=== PATIENT | male | born 1970 | race African-American/Black ===

== ENCOUNTER 2023-05-09 23:28 | Observation (INO) ==
[2023-05-09 23:59] LABS: Basophils # (auto) 0.07 K/uL (0.00-0.20); Eosinophils # (auto) 0.21 K/uL (0.00-0.50); Hematocrit (blood only) 40.5 % (42.0-52.0); Hemoglobin 13.7 g/dl (14.0-18.0); Immature Granulocytes # (auto) 0.01 K/uL (0.01-0.20); Immature Granulocytes % (auto) 0.1 %; Lymphocytes # (auto) 2.73 K/uL (1.20-3.40); Lymphocytes % (auto) 38.6 %; Mean Corpuscular Hemoglobin 25.7 pg (25.0-34.0); Mean Corpuscular Hgb Conc 33.8 g/dL (32.0-36.0); Mean Platelet Volume 10.1 fL (9.4-12.4); Monocytes # (auto) 0.77 K/uL (0.11-0.59); Monocytes % (auto) 10.9 %; Neutrophils # (auto) 3.29 K/uL (1.40-6.50); Neutrophils % (auto) 46.4 %; Platelet Count 401 K/uL (130-400); RDW Coefficient of Variation 14.6 % (11.5-14.5); Red Blood Count 5.33 M/uL (4.70-6.10); White Blood Count 7.08 K/ul (4.8-10.8)
[2023-05-10 00:13] LABS: Alanine Aminotransferase 20 U/L (7-52); Albumin Globulin Ratio 1.3 (0.9-2); Albumin Level 4.3 gm/dl (3.4-5.0); Alkaline Phosphatase 65 U/L (34-104); Anion Gap 8 (3-11); Aspartate Aminotransferase 17 U/L (13-39); BUN Creatinine Ratio 13.5 (10-20); Bilirubin,Total 0.4 mg/dl (0.2-1.0); Blood Urea Nitrogen 12 mg/dl (6-23); Calcium 9.4 mg/dl (8.6-10.3); Carbon Dioxide 29 mmol/L (21-32); Chloride 101 mmol/L (98-107); Est GFR (African American) 111.6 ml/min; Est GFR (Non-African American) 96.3 ml/min; Globulin 3.3 gm/dl (2.5-4.0); Glucose 167 mg/dl (70-99(Fasting)); Potassium 3.1 mmol/L (3.5-5.1); Sodium 138 mmol/L (136-145); Total Protein 7.6 gm/dl (6.0-8.3)
[2023-05-10 00:21] LABS: Troponin I High Sensitivity 32.3 pg/ml (0-20)
[2023-05-10 00:26] LABS: INR 0.9 (0.9-1.1); Partial Thromboplastin Time 27 Seconds (21-31); Prothrombin Time 10.4 Seconds (9.0-12.0)
[2023-05-10] MEDS: NITROGLYCERIN 2% OINTMENT 30GM TUBE EXT ONE (00:44)
[2023-05-10] MEDS: ASPIRIN 81 MG CHEW PO STA (00:45)
--- NOTE | 2023-05-10 00:49 | Emergency Department Note ---
History of Present Illness General Chief complaint: Chest Pain Stated complaint: CHEST PAINS Time Seen by Provider: 05/10/23 00:30 History of Present Illness Maximum Pain Intensity: 5 This is a 53-year-old male presenting to the emergency department for evaluation of left-sided chest pain. Patient symptoms began around 10 PM this evening, roughly 90 minutes prior to arrival. Patient is diabetic and has history of hypertension and dyslipidemia. He has never had any previous cardiac events, but is concerned as he has spreading chest pain across the left side. The pain is more sharp than anything and is not radiating into his neck or down his arm. No nausea or vomiting. No abdominal symptoms. No recent flulike symptoms. He is a former cigarette smoker up until 2 years ago. He rates his discomfort a 5/10. Home Medications Medication Instructions Recorded Confirmed Type OneTouch Verio Flex meter #1 ea 09/26/22 05/10/23 Rx (blood-glucose meter) blood sugar diagnostic (Increo SolutionsTouch #100 ea 09/26/22 05/10/23 Rx Verio test strips) lancets 33 gauge (OneTouch Delica #200 ea 10/09/22 05/10/23 Rx Plus Lancet) amlodipine 10 mg tablet (Norvasc) 10 mg PO DAILY #90 tabs 01/20/23 05/10/23 Rx aspirin 81 mg tablet,delayed 81 mg PO DAILY #90 tabs 01/20/23 05/10/23 Rx release (Adult Low Dose Aspirin) atorvastatin 20 mg tablet 20 mg PO DAILY #90 tabs 01/20/23 05/10/23 Rx cholecalciferol (vitamin D3) 50 50 mcg PO DAILY #90 caps 01/20/23 05/10/23 Rx mcg (2,000 unit) capsule hydrochlorothiazide 25 mg tablet 25 mg PO DAILY #90 tabs 01/20/23 05/10/23 Rx valsartan 320 mg tablet 320 mg PO DAILY #90 tabs 01/20/23 05/10/23 Rx metformin 1,000 mg tablet 1,000 mg PO BID #180 tabs 01/21/23 05/10/23 Rx Allergies Allergy/AdvReac Type Severity Reaction Status Date / Time shellfish derived Allergy Unknown Verified 05/06/23 14:56 lisinopril AdvReac Mild swollen Verified 05/06/23 14:56 Lips seasonal Allergy Unknown Uncoded 05/06/23 14:56 Past Med/Surg History Medical History Moderate obstructive sleep apnea Diabetes mellitus, type 2 Dyslipidemia Hypertension Thyroid nodule Multiple lacunar infarcts Noted on MRI May 2021 Former cigarette smoker Quit 2021 Surgical History No pertinent past surgical history Family History Father , alcoholism related complications Alcohol abuse by father Mother Asthma Social History Smoking Status: Former smoker Tobacco Type: Cigarettes Second Hand Exposure: No; Do You Dip or Chew Tobacco: No; Hx Alcohol Use: No Hx Substance Use: No Preferred Language: Kazakh Communication Ability: Effective Collection Card Clerk Required: No Beliefs That Will Affect Care: Cultural Cultural Beliefs: No pork or shellfish, vegetarian. Current Living Situation: Spouse Feels Safe at Home: Yes Assistive Devices: None Review of Systems A total of 10 systems reviewed and were otherwise negative Physical Exam Vital Signs Vital Signs - 24 hr 05/09/23 23:30 05/10/23 00:09 Temperature 36.8 C Temperature Source Temporal Artery Scan Pulse Rate 71 62 Respiratory Rate 16 Respiratory Effort / Characteristics Non-Labored Spontaneous Respiratory Depth Normal Blood Pressure 151/86 H Blood Pressure Mean 107 Pulse Oximetry 99 Oxygen Delivery Method Room Air Sepsis Recent Fever Within 48 Hours No Sepsis New/Unexplained Change in Mental Status No Sepsis Action Taken by Nursing No Action Required VITALS: Vitals are noted on the nurse's note and reviewed by myself. Vital signs stable. GENERAL: Well-developed, well-nourished, black male, who is in no acute distress and resting comfortably. Patient is cooperative with the examination. HEAD: Normocephalic atraumatic. EARS: External ear normal. External auditory canals clear, tympanic membranes pearly ulloa without erythema or effusion bilaterally. EYES: Pupils equal round and reactive to light and accommodation. Conjunctivae without injection, sclerae without icterus. Extraocular movements intact. NOSE: Patent, turbinates without inflammation or discharge. MOUTH: Mucous membranes moist. Tonsils are not enlarged. Pharynx without erythema, blood, or exudate. Uvula midline. Airway patent. NECK: Supple without nuchal rigidity. No lymphadenopathy. No thyromegaly. Cervical spine is nontender. HEART: Regular rate and rhythm without murmurs gallops or rubs. LUNGS: Clear to auscultation bilaterally without wheezes, rales or rhonchi. No retractions or accessory muscle use. ABDOMEN: Positive normal bowel sounds x 4. Soft, nontender, without masses or organomegaly. No guarding or rebound tenderness. MUSCULOSKELETAL: No muscle atrophy, erythema, or edema noted. Full range of motion in all extremities. Course Administered Medications Discontinued Medications Amlodipine Besylate (Amlodipine Besylate 5 Mg Tab) 10 mg PO DAILY [facility] Stop: 06/09/23 08:59 Last Admin: 05/10/23 08:07 Dose: 10 mg Documented By: CHRIS Aspirin (Aspirin 81 Mg Chew) 324 mg PO NOW STA Stop: 05/10/23 00:31 Last Admin: 05/10/23 00:45 Dose: 324 mg Documented By: SYDNIE Aspirin (Aspirin 81 Mg Ectab) 81 mg PO DAILY [facility] Stop: 06/09/23 08:59 Last Admin: 05/10/23 08:07 Dose: 81 mg Documented By: CHRIS Atorvastatin Calcium (Atorvastatin 20 Mg Tab) 20 mg PO DAILY ISABELLA Stop: 06/09/23 08:59 Last Admin: 05/10/23 08:08 Dose: 20 mg Documented By: CHRIS Hydrochlorothiazide (Hydrochlorothiazide 25 Mg Tab) 25 mg PO DAILY ISABELLA Stop: 06/09/23 08:59 Last Admin: 05/10/23 08:07 Dose: 25 mg Documented By: CHRIS Insulin Aspart (Insulin Aspart Per Unit Charge) 0 units SC Q6 ISABELLA Stop: 06/09/23 05:59 Last Admin: 05/10/23 12:31 Dose: Not Given Documented By: CHRIS Co-signed By: PILAR Admin: 05/10/23 06:28 Dose: Not Given Documented By: IDVikas Nitroglycerin (Nitroglycerin 2% Ointment 30gm Tube) 1 inch EXT NOW ONE Stop: 05/10/23 00:31 Last Admin: 05/10/23 00:44 Dose: 1 inch Documented By: SYDNIE Polyethylene Glycol (Polyethylene (Miralax) 17 Gm Pack) 17 gm PO DAILY [facility] Stop: 06/09/23 08:59 Last Admin: 05/10/23 08:13 Dose: Not Given Documented By: CHRIS Potassium Chloride (Potassium Chloride Crtab 20 Meq Tabcr) 60 meq PO NOW STA Stop: 05/10/23 03:30 Last Admin: 05/10/23 05:12 Dose: 60 meq Documented By: IDD Medical Decision Making Differential Diagnosis Differential diagnosis includes, but is not limited to: Myocardial infarction, dysrhythmia, pericarditis, pneumothorax, aortic aneurysm/dissection, DVT/PE, anxiety, GERD, PUD, electrolyte imbalance, thyroid disorder, pneumonia, bronchitis, pancreatitis, and others Laboratory Data 05/09/23 23:35 05/10/23 07:38 Lab Results 05/09/23 05/10/23 Range/Units 23:35 01:54 WBC 7.08 (4.8-10.8) K/ul RBC 5.33 (4.70-6.10) M/uL Hgb 13.7 L (14.0-18.0) g/dl Hct 40.5 L (42.0-52.0) % MCV 76.0 L (80.0-100.0) fL MCH 25.7 (25.0-34.0) pg MCHC 33.8 (32.0-36.0) g/dL RDW Std Deviation 39.0 (36.4-46.3) fL RDW Coeff of Jackson 14.6 H (11.5-14.5) % Plt Count 401 H (130-400) K/uL MPV 10.1 (9.4-12.4) fL Immature Gran % (Auto) 0.1 % Neut % (Auto) 46.4 % Lymph % (Auto) 38.6 % Wilson % (Auto) 10.9 % Eos % (Auto) 3.0 % Baso % (Auto) 1.0 % Neut # (Auto) 3.29 (1.40-6.50) K/uL Lymph # (Auto) 2.73 (1.20-3.40) K/uL Wilson # (Auto) 0.77 H (0.11-0.59) K/uL Eos # (Auto) 0.21 (0.00-0.50) K/uL Baso # (Auto) 0.07 (0.00-0.20) K/uL Immature Gran # (Auto) 0.01 (0.01-0.20) K/uL PT 10.4 (9.0-12.0) Seconds INR 0.9 (0.9-1.1) APTT 27 (21-31) Seconds PTT Ratio 1.0 Sodium 138 (136-145) mmol/L Potassium 3.1 L (3.5-5.1) mmol/L Chloride 101 (98-107) mmol/L Carbon Dioxide 29 (21-32) mmol/L Anion Gap 8 (3-11) BUN 12 (6-23) mg/dl Creatinine 0.89 (0.6-1.4) mg/dl Est Cr Clr Drug Dosing Not Reportable Est GFR ( Amer) 111.6 ml/min Est GFR (Non-Af Amer) 96.3 ml/min BUN/Creatinine Ratio 13.5 (10-20) Glucose 167 H (70-99(Fasting)) mg/dl Calcium 9.4 (8.6-10.3) mg/dl Magnesium 1.9 (1.7-2.4) mg/dl Total Bilirubin 0.4 (0.2-1.0) mg/dl AST 17 (13-39) U/L ALT 20 (7-52) U/L Alkaline Phosphatase 65 (34-104) U/L Troponin I High Sens 32.3 H 30.8 H (0-20) pg/ml Total Protein 7.6 (6.0-8.3) gm/dl Albumin 4.3 (3.4-5.0) gm/dl Globulin 3.3 (2.5-4.0) gm/dl Albumin/Globulin Ratio 1.3 (0.9-2) MDM Narrative Physical exam and history were performed. Nursing notes, EMR, and Medication List were personally reviewed. No social concerns were identified as barriers to patients care. Patient appears to have had an episode of chest pain this evening bringing him to the ER. IV access was established and labs were obtained. Initial EKG was without ischemic findings. An order was placed for continuous cardiac monitoring. The monitor shows a rate of 58 with sinus bradycardic rhythm. Patient's blood work is as above and was reviewed. He does not have significant elevated white blood cell count, gross anemia, bandemia, or significant electrolyte imbalance. Troponin is slightly elevated. Patient was given aspirin and Nitropaste was applied. Remaining labs are fairly nondiagnostic. Overall the patient does not appear well for discharge home. Heart score is at least 5 with multiple risk factors including diabetes, dyslipidemia, and hypertension. The elevated troponin appears new and of unknown significance. This will need to be monitored. Escalation of care is necessary for this patient, and he was discussed with the on-call hospitalist team who agreed to evaluate him here in the ER. Please see their dictation for further patient course, plan, disposition. The chart was completed utilizing [employer] Speech Voice Recognition Software. Grammatical errors, random word insertions, pronoun errors, and incomplete sentences are an occasional consequence of this system due to software limitations, ambient noise, and hardware issues. Any formal questions or concerns about the content, text, or information contained within the body of this dictation should be directly addressed to the provider for clarification. . Impression & Plan Atypical chest pain, Elevated troponin Discharge Plan Visit Data Chief Complaint: Chest Pain Stated Complaint: CHEST PAINS ED Provider: Fatoumata Mcgee ED Midlevel Provider: Kalyan Ulrich Discharge Problem: Atypical chest pain, Elevated troponin Patient Disposition: Admitted As Inpatient Discharge Instructions Interventions: ED Discharge Assessment Last Done: 05/10/23 03:30
--- NOTE | 2023-05-10 01:55 | History & Physical Report ---
Date of Service May 10, 2023 Assessment & Plan (1) Chest pain: Plan: 53yo AA male with history of HTN, HLP, DM and prior CVA presenting with acute onset chest pain at rest. Elevated troponin to 32.3. No acute EKG changes. Repeat troponin decreased to 30.8/ Patient remains chest pain free, Nitropaste in place Significant risk factors present -Observation to medical with telemetry -Monitor troponin -Check 2D echo -Cardiology consultation appreciated -Electrolyte repletion - K 60mEq ordered -Check Mg -Continue ASA and Atorvastatin (2) Hypertension: Plan: Blood pressure adequately controlled at present -Continue Amlodipine -Continue HCTZ -Monitor (3) Dyslipidemia: Plan: Chronic -Continue Atorvastatin (4) Diabetes mellitus, type 2: Plan: Last RgrH5G=1.3 on 10/29/22. Patient is on Metformin therapy -ISS -Goal blood sugar 110 - 140 (5) Moderate obstructive sleep apnea: Plan: Patient has had a sleep study and is to wear CPAP qHS. His machine has not yet been delivered. He does not wish to start the machine now. Renate storm -Monitor History of Present Illness Chief Complaint: chest pain Primary Care Provider: Lc Pack MD Chip Little is a 53yo male with history of DM, HTN, HLP and prior CVA as n oted on brain imaging presents from home after developing chest pain this evening. Patient ate a banana this evening and was going to bed. He laid down and developed left sided chest pain. He got up out of bed and walked around which made the pain more intense. Pain ranging from 2-7 in severity - sharp in nature, non-radiating and non-pleuritic. He had some associated heartburn and belching. He called EMS and came to the ER. His chest pain did subside upon arrival to the ER, however he continues to have occasional sharp pains in his chest. No recent illness or vaccinations. He reports occasional chest discomfort in the past. He does have some substernal discomfort with exertion. Follows with Cardiology for management of his cardiac risk factors - no known CAD. HE had a stress echo performed 08/2022 with no evidence of inducible ischemia at 89% In the ER he is afebrile, HD stable Elevated troponin initially at 32.3 ER Course: ASA 324mg Nitro paste 1 inch Allergies Allergy/AdvReac Type Severity Reaction Status Date / Time shellfish derived Allergy Unknown Verified 05/06/23 14:56 lisinopril AdvReac Mild swollen Verified 05/06/23 14:56 Lips seasonal Allergy Unknown Uncoded 05/06/23 14:56 Home Medications Medication Instructions Recorded Confirmed Type OneTouch Verio Flex meter #1 ea 09/26/22 05/10/23 Rx (blood-glucose meter) blood sugar diagnostic (OneTouch #100 ea 09/26/22 05/10/23 Rx Verio test strips) lancets 33 gauge (OneTouch Delica #200 ea 10/09/22 05/10/23 Rx Plus Lancet) amlodipine 10 mg tablet (Norvasc) 10 mg PO DAILY #90 tabs 01/20/23 05/10/23 Rx aspirin 81 mg tablet,delayed 81 mg PO DAILY #90 tabs 01/20/23 05/10/23 Rx release (Adult Low Dose Aspirin) atorvastatin 20 mg tablet 20 mg PO DAILY #90 tabs 01/20/23 05/10/23 Rx cholecalciferol (vitamin D3) 50 50 mcg PO DAILY #90 caps 01/20/23 05/10/23 Rx mcg (2,000 unit) capsule hydrochlorothiazide 25 mg tablet 25 mg PO DAILY #90 tabs 01/20/23 05/10/23 Rx valsartan 320 mg tablet 320 mg PO DAILY #90 tabs 01/20/23 05/10/23 Rx metformin 1,000 mg tablet 1,000 mg PO BID #180 tabs 01/21/23 05/10/23 Rx Past Med/Surg History Medical History Moderate obstructive sleep apnea Diabetes mellitus, type 2 Dyslipidemia Hypertension Thyroid nodule Multiple lacunar infarcts Noted on MRI May 2021 Former cigarette smoker Quit 2021 Surgical History No pertinent past surgical history Family History Father , alcoholism related complications Alcohol abuse by father Mother Asthma Social History Smoking Status: Former smoker Tobacco Type: Cigarettes Feels Safe at Home: Yes Review of Systems Review of Systems: All systems reviewed & are unremarkable except as noted in HPI & below Physical Exam Physical Exam: General: patient resting comfortably, NAD, non-toxic in appearance, AA&O x 4 Skin: warm, dry, intact, no rashes or lesions HEENT: NC/AT, PERRL, EOMI, anicteric sclera, conjunctiva without injection, external ear normal to inspection and nontender, nares patent, moist mucus membranes, dentition intact, no oropharyngeal lesions, neck supple, trachea midline, no LAD, no thyromegaly, no JVD Heart: +S1/S2, regular, no m/r/g, slight chest wall discomfort with palpation Lungs: equal air entry bilaterally, no rales/rhonchi/wheezes Abd: +BS, soft, NT/ND, no masses/organomegaly/ascites Ext: warm, 2+ pulses in UE/LE bilaterally, no clubbing/cyanosis or edema Neuro: nonfocal, patient AA&O x 4, speech intact, no facial droop, moving all extremities on command with equal strength 5/5 Results & Data Results & Data Vital Signs (Past 12 Hours) Vital Signs Temp Pulse Pulse Resp BP BP Pulse Ox 05/10/23 01:00 56 L 20 133/93 97 05/10/23 00:09 62 05/10/23 00:07 59 L 16 136/89 95 05/09/23 23:30 36.8 C 71 16 151/86 H 99 O2 Del Method 05/10/23 01:00 Room Air 05/10/23 00:09 05/10/23 00:07 Room Air 05/09/23 23:30 Room Air Laboratory Results Laboratory Results WBC 7.08 K/ul (4.8-10.8) 05/09/23 23:35 RBC 5.33 M/uL (4.70-6.10) 05/09/23 23:35 Hgb 13.7 g/dl (14.0-18.0) L 05/09/23 23:35 Hct 40.5 % (42.0-52.0) L 05/09/23 23:35 MCV 76.0 fL (80.0-100.0) L 05/09/23 23:35 MCH 25.7 pg (25.0-34.0) 05/09/23 23:35 MCHC 33.8 g/dL (32.0-36.0) 05/09/23 23:35 RDW Std Deviation 39.0 fL (36.4-46.3) 05/09/23 23:35 RDW Coeff of Jackson 14.6 % (11.5-14.5) H 05/09/23 23:35 Plt Count 401 K/uL (130-400) H 05/09/23 23:35 MPV 10.1 fL (9.4-12.4) 05/09/23 23:35 Immature Gran % (Auto) 0.1 % 05/09/23 23:35 Neut % (Auto) 46.4 % 05/09/23 23:35 Lymph % (Auto) 38.6 % 05/09/23 23:35 Bremer % (Auto) 10.9 % 05/09/23 23:35 Eos % (Auto) 3.0 % 05/09/23 23:35 Baso % (Auto) 1.0 % 05/09/23 23:35 Neut # (Auto) 3.29 K/uL (1.40-6.50) 05/09/23 23:35 Lymph # (Auto) 2.73 K/uL (1.20-3.40) 05/09/23 23:35 Bremer # (Auto) 0.77 K/uL (0.11-0.59) H 05/09/23 23:35 Eos # (Auto) 0.21 K/uL (0.00-0.50) 05/09/23 23:35 Baso # (Auto) 0.07 K/uL (0.00-0.20) 05/09/23 23:35 Immature Gran # (Auto) 0.01 K/uL (0.01-0.20) 05/09/23 23:35 PT 10.4 Seconds (9.0-12.0) 05/09/23 23:35 INR 0.9 (0.9-1.1) 05/09/23 23:35 APTT 27 Seconds (21-31) 05/09/23 23:35 PTT Ratio 1.0 05/09/23 23:35 Sodium 138 mmol/L (136-145) 05/09/23 23:35 Potassium 3.1 mmol/L (3.5-5.1) L 05/09/23 23:35 Chloride 101 mmol/L (98-107) 05/09/23 23:35 Carbon Dioxide 29 mmol/L (21-32) 05/09/23 23:35 Anion Gap 8 (3-11) 05/09/23 23:35 BUN 12 mg/dl (6-23) 05/09/23 23:35 Creatinine 0.89 mg/dl (0.6-1.4) 05/09/23 23:35 Est Cr Clr Drug Dosing Not Reportable 05/09/23 23:35 Est GFR ( Amer) 111.6 ml/min 05/09/23 23:35 Est GFR (Non-Af Amer) 96.3 ml/min 05/09/23 23:35 BUN/Creatinine Ratio 13.5 (10-20) 05/09/23 23:35 Glucose 167 mg/dl (70-99(Fasting)) H 05/09/23 23:35 Calcium 9.4 mg/dl (8.6-10.3) 05/09/23 23:35 Magnesium 1.9 mg/dl (1.7-2.4) 05/09/23 23:35 Total Bilirubin 0.4 mg/dl (0.2-1.0) 05/09/23 23:35 AST 17 U/L (13-39) 05/09/23 23:35 ALT 20 U/L (7-52) 05/09/23 23:35 Alkaline Phosphatase 65 U/L (34-104) 05/09/23 23:35 Troponin I High Sens 30.8 pg/ml (0-20) H 05/10/23 01:54 Total Protein 7.6 gm/dl (6.0-8.3) 05/09/23 23:35 Albumin 4.3 gm/dl (3.4-5.0) 05/09/23 23:35 Globulin 3.3 gm/dl (2.5-4.0) 05/09/23 23:35 Albumin/Globulin Ratio 1.3 (0.9-2) 05/09/23 23:35 Diagnostic Findings CXR - per my interpretation, no obvious infiltrate or edema ECG Additional Comments: EKG reveals Sinus bradycardia at 56bpm, left axis with LAFB, 1st degree AV block with NP=997, NNJ=541, KLt=905. Poor R wave progression , no acute ischemic changes PG Care Time/CCT Total # of Minutes Spent Total Time Spent with Patient: Total time spent is greater than 50% in coordination of care (as documented) at patient's floor/unit and/or counseling patient: Coding Level of Care Code 49541 INT INP/OBS CARE 2/55MIN Diagnoses Chest pain R07.9 Hypertension I10 Dyslipidemia E78.5 Diabetes mellitus, type 2 E11.9 Moderate obstructive sleep apnea G47.33
[2023-05-10] MEDS ORDERED: CARBOHYDRATES FOR HYPOGLYCEMIA PO PRN (03:29)
[2023-05-10] MEDS ORDERED: GLUCAGON FOR INJ 1 MG VIAL SQ PRN (03:29)
[2023-05-10] MEDS ORDERED: GLUCOSE 10 TAB/TUBE PO PRN (03:29)
[2023-05-10] MEDS ORDERED: ONDANSETRON INJ 2 MG/ML 2 ML VIAL IV PRN (03:29)
[2023-05-10] MEDS ORDERED: ACETAMINOPHEN 325 MG TAB PO PRN (03:29)
[2023-05-10] MEDS ORDERED: GLUCOSE 40% GEL 15 GM TUBE PO PRN (03:29)
[2023-05-10] MEDS ORDERED: DEXTROSE 50% 50 ML SYRINGE IV PRN (03:29)
[2023-05-10 04:06] LABS: Magnesium 1.9 mg/dl (1.7-2.4)
[2023-05-10] MEDS: POTASSIUM CHLORIDE CRTAB 20 MEQ TABCR PO STA (05:12)
[2023-05-10] MEDS: INSULIN ASPART PER UNIT CHARGE SC SCH (06:28)
[2023-05-10] MEDS: amLODIPine BESYLATE 5 MG TAB PO SCH (08:07)
[2023-05-10] MEDS: hydroCHLOROthiazide 25 MG TAB PO SCH (08:07)
[2023-05-10] MEDS: ASPIRIN 81 MG ECTAB PO SCH (08:07)
[2023-05-10] MEDS: ATORVASTATIN 20 MG TAB PO SCH (08:08)
[2023-05-10] MEDS: POLYETHYLENE (MIRALAX) 17 GM PACK PO SCH (08:13)
--- NOTE | 2023-05-10 08:38 | Hospitalist Progress Note ---
Date of Service May 10, 2023 Assessment & Plan Admission and Anticipated Discharge Date Admission Date: May 10, 2023 Results & Data Results & Data Vital Signs (Past 12 Hours) Vital Signs Temp Pulse Pulse Resp BP BP Pulse Ox 05/10/23 07:35 62 05/10/23 05:48 58 L 18 126/89 96 05/10/23 03:00 96 05/10/23 02:24 58 L 20 95 05/10/23 02:00 56 L 18 126/89 93 05/10/23 02:00 60 18 126/89 96 05/10/23 01:00 56 L 20 133/93 97 05/10/23 00:09 62 05/10/23 00:07 59 L 16 136/89 95 05/09/23 23:30 36.8 C 71 16 151/86 H 99 O2 Del Method 05/10/23 07:35 05/10/23 05:48 Room Air 05/10/23 03:00 Room Air 05/10/23 02:24 Room Air 05/10/23 02:00 Room Air 05/10/23 02:00 Room Air 05/10/23 01:00 Room Air 05/10/23 00:09 05/10/23 00:07 Room Air 05/09/23 23:30 Room Air
[2023-05-10 08:42] LABS: Troponin I High Sensitivity 26.1 pg/ml (0-20)
--- NOTE | 2023-05-10 08:51 | XRay Report ---
XR chest 1V not portable CLINICAL HISTORY: Chest pain, nonspecific COMPARISON STUDY: Chest radiograph March 25, 2022. FINDINGS: No pneumothorax or pleural effusion is noted. There is mild cardiomegaly. Pulmonary vascula r congestion is noted. There is no evidence for for pulmonary edema. There is no consolidation. IMPRESSION: Cardiomegaly with pulmonary vascular congestion. ACT 112: Negative or not required by law. Electronically signed by: Yovani Larkin M.D. 05/10/2023 8:49 AM
[2023-05-10 09:35] LABS: BUN Creatinine Ratio 12.4 (10-20); Calcium 8.6 mg/dl (8.6-10.3); Creatinine Clr Calc Pharmacy 116.1 ml/min; Est GFR (African American) 111.6 ml/min; Est GFR (Non-African American) 96.3 ml/min; Potassium 3.2 mmol/L (3.5-5.1)
--- NOTE | 2023-05-10 12:11 | Cardiology Consultation ---
Date of Consultation May 10, 2023 Assessment & Plan (1) Chest pain: -history suggested GI etiology to his complaints. -mildly elevated troponin of no clinical significance. -echocardiogram notes normal systolic function without wall motion abnormalities. -would ambulate and monitor for symptoms. -if asymptomatic, discharge home for an outpatient stress test. (2) Hypertension: -adequate control on current regimen. (3) Dyslipidemia: -continue atorvastatin. History of Present Illness Attending Physician: Lucas Ramírez DO History of Present Illness Mr. Little is a 53-year-old male admitted earlier today with a chest pain syndrome. This consultation was ordered to assistance cardiac management. Of note, patient is typically followed by Dr. Leahy in the outpatient setting. The patient was in his usual state of health until last evening. He ate a banana prior to going to bed. While supine, he developed a sharp, left-sided chest pain. Explained that he noticed a pulse of short pain which made him feel like he had to belch. After belching, his symptoms resolved completely. This occurred numerous times, and the patient became concerned and presented to the emergency room for further care. On arrival here, patient was symptom free. He had a mildly elevated high sensitivity troponin 32. His EKG showed no acute changes. Hospitalization was recommended. The patient has never known of a cardiac event. He underwent a normal stress echocardiogram back in August of 2022. Past medical and surgical history 1. Hypertension 2. Moderate LVH 3. Hypercholesterolemia 4. Diabetes mellitus 5. Several lacunar CVAs-MRI, May 2021 6. Obstructive sleep apnea 7. 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 Allergies Allergy/AdvReac Type Severity Reaction Status Date / Time shellfish derived Allergy Unknown Verified 05/06/23 14:56 lisinopril AdvReac Mild swollen Verified 05/06/23 14:56 Lips seasonal Allergy Unknown Uncoded 05/06/23 14:56 Home Medications Medication Instructions Recorded Confirmed Type BracketrTouch Verio Flex meter #1 ea 09/26/22 05/10/23 Rx (blood-glucose meter) blood sugar diagnostic (BracketrTouch #100 ea 09/26/22 05/10/23 Rx Verio test strips) lancets 33 gauge (BracketrCory Reyes #200 ea 10/09/22 05/10/23 Rx Plus Lancet) amlodipine 10 mg tablet (Norvasc) 10 mg PO DAILY #90 tabs 01/20/23 05/10/23 Rx aspirin 81 mg tablet,delayed 81 mg PO DAILY #90 tabs 01/20/23 05/10/23 Rx release (Adult Low Dose Aspirin) atorvastatin 20 mg tablet 20 mg PO DAILY #90 tabs 01/20/23 05/10/23 Rx cholecalciferol (vitamin D3) 50 50 mcg PO DAILY #90 caps 01/20/23 05/10/23 Rx mcg (2,000 unit) capsule hydrochlorothiazide 25 mg tablet 25 mg PO DAILY #90 tabs 01/20/23 05/10/23 Rx valsartan 320 mg tablet 320 mg PO DAILY #90 tabs 01/20/23 05/10/23 Rx metformin 1,000 mg tablet 1,000 mg PO BID #180 tabs 01/21/23 05/10/23 Rx Patient History Medical History Moderate obstructive sleep apnea Diabetes mellitus, type 2 Dyslipidemia Hypertension Thyroid nodule Multiple lacunar infarcts Noted on MRI May 2021 Former cigarette smoker Quit 2021 Surgical History No pertinent past surgical history Family History Father , alcoholism related complications Alcohol abuse by father Mother Asthma Social History Smoking Status: Former smoker Tobacco Type: Cigarettes Second Hand Exposure: No; Do You Dip or Chew Tobacco: No; Tobacco Cessation Education Requested by Patient: No Hx Alcohol Use: No Hx Substance Use: No Preferred Language: Kazakh Communication Ability: Effective Barmaid Required: No Beliefs That Will Affect Care: Cultural Cultural Beliefs: No pork or shellfish, vegetarian. Current Living Situation: Spouse Other Information That Helps Us Care for You: No Feels Safe at Home: Yes Safety Concerns: Feels Safe At This Time Assistive Devices: None Physical Exam Physical Exam: In general this is a well-developed well-nourished male in no acute distress. HEENT exam is negative. Neck is supple with full carotid upstrokes. There are no carotid bruits. Jugular venous pressure is flat at 90. There is no thyromegaly. Cardiovascular exam reveals a regular rhythm with a normal S1 and S2. No S3, S4, or murmurs are noted. Lungs are clear without rales, rhonchi, or wheezes. Abdomen is soft and nontender without bruits. Extremities reveal intact radial artery and posterior tibial pulses bilaterally. There is no peripheral edema. Results & Data Vital Signs (Past 12 Hours) Vital Signs Pulse Pulse Resp BP Pulse Ox O2 Del Method 05/10/23 07:35 62 05/10/23 05:48 58 L 18 126/89 96 Room Air 05/10/23 03:00 96 Room Air 05/10/23 02:24 58 L 20 95 Room Air 05/10/23 02:00 56 L 18 126/89 93 Room Air 05/10/23 02:00 60 18 126/89 96 Room Air 05/10/23 01:00 56 L 20 133/93 97 Room Air Laboratory Results CBC notes hemoglobin 13.7, hematocrit 40.5, white count 5.3, and platelet count [id number]. Electrolytes note a sodium of 140, potassium 3.2, chloride 102, bicarb 28, BUN 11, creatinine 0.89, glucose of 139. Initial high sensitivity troponin was 32 with follow-up values of 30.8 and 26. Diagnostic Findings EKG notes normal sinus rhythm with first-degree AV block, LVH, and old anteroseptal DE pattern. Chest x-ray shows cardiomegaly. PG Care Time/CCT Total # of Minutes Spent Total Time Spent with Patient: Total time spent is greater than 50% in coordination of care (as documented) at patient's floor/unit and/or counseling patient: Coding Level of Care Code 90136 IN/OBS CONSULT LVL 4,60M Diagnoses Chest pain R07.9 Hypertension I10 Dyslipidemia E78.5
--- NOTE | 2023-05-10 12:15 | XCELERA ---
[id number]
--- NOTE | 2023-05-10 12:56 | Discharge Summary ---
Date of Service May 10, 2023 Admission HPI Per Admitting Provider Chip Little is a 53yo male with history of DM, HTN, HLP and prior CVA as noted on brain imaging presents from home after developing chest pain this evening. Patient ate a banana this evening and was going to bed. He laid down and developed left sided chest pain. He got up out of bed and walked around which made the pain more intense. Pain ranging from 2-7 in severity - sharp in nature, non-radiating and non-pleuritic. He had some associated heartburn and belching. He called EMS and came to the ER. His chest pain did subside upon arrival to the ER, however he continues to have occasional sharp pains in his chest. No recent illness or vaccinations. He reports occasional chest discomfort in the past. He does have some substernal discomfort with exertion. Follows with Cardiology for management of his cardiac risk factors - no known CAD. HE had a stress echo performed 08/2022 with no evidence of inducible ischemia at 89% In the ER he is afebrile, HD stable Elevated troponin initially at 32.3 ER Course: ASA 324mg Nitro paste 1 inch Admission Exam Per Admitting Provider General: patient resting comfortably, NAD, non-toxic in appearance, AA&O x 4 Skin: warm, dry, intact, no rashes or lesions HEENT: NC/AT, PERRL, EOMI, anicteric sclera, conjunctiva without injection, external ear normal to inspection and nontender, nares patent, moist mucus membranes, dentition intact, no oropharyngeal lesions, neck supple, trachea midline, no LAD, no thyromegaly, no JVD Heart: +S1/S2, regular, no m/r/g, slight chest wall discomfort with palpation Lungs: equal air entry bilaterally, no rales/rhonchi/wheezes Abd: +BS, soft, NT/ND, no masses/organomegaly/ascites Ext: warm, 2+ pulses in UE/LE bilaterally, no clubbing/cyanosis or edema Neuro: nonfocal, patient AA&O x 4, speech intact, no facial droop, moving all extremities on command with equal strength 5/5 Principal Diagnosis Chest pain Discharge Exam General: Alert and oriented, no acute distress Heart: +S1/S2, regular, no murmur, slight chest wall discomfort with palpation just under the L clavicle Lungs: equal air entry bilaterally, no rales/rhonchi/wheezes Abd: +BS, soft, NT/ND, no masses/organomegaly/ascites Skin: warm, dry, no rashes on visible skin Discharge Data Allergies Allergy/AdvReac Type Severity Reaction Status Date / Time shellfish derived Allergy Unknown Verified 05/06/23 14:56 lisinopril AdvReac Mild swollen Verified 05/06/23 14:56 Lips seasonal Allergy Unknown Uncoded 05/06/23 14:56 Consultations 05/10/23 01:03 ED Decision to Admit Stat 05/10/23 01:55 Consult Cardiology Routine Hospital Course (1) Hypertension: (2) Dyslipidemia: (3) Diabetes mellitus, type 2: (4) Moderate obstructive sleep apnea: (5) Chest pain: Plan Pt is a 53 yo male with a past med hx of HTN, HLD, DMT2, sleep apnea, and hx of CVA found incidentally on MRI presented to the hospital on 05/08 for chest pain, admitted for further cardiac workup with high risk hx. Pt wishing to go home if no cardiology recommendations for interventions inpatient. Has been stable since here and symptoms seem positional and some pain is reproducible with palpation with a story sounding more like GERD or acute intercostal spasms. Given he is still high risk, recommend outpatient stress test. Otherwise doing well and stable for discharge home with echo unremarkable. #Chest pain - hx is months of intermittent chest pain mostly at night when laying on L side as one sharp jolt of pain that then goes away, has become more frequent and yesterday was one episode after another with pain ranging from 1/10 to 6/10 or greater - laying on R side largely relieved nighttime issues, so seems to be more MSK in nature or possibly GERD related - echo 05/10/23; no wall abnormalities, EF 55-60% - trop 32 and 30 - evaluated inpatient by cardiology due to high risk for WA even if symptoms atypical for WA; outpatient stress test recommended -Continue ASA and Atorvastatin #Hypertension - Blood pressure adequately controlled throughout admission -Continued Amlodipine -Continued HCTZ #Dyslipidemia -Continued Atorvastatin #Diabetes mellitus, type 2 - Last AibK2I=0.3 on 10/29/22. Patient is on Metformin therapy - ISS, Goal blood sugar 110 - 140 while inpatient #Moderate obstructive sleep apnea - Patient has had a sleep study and is to wear CPAP qHS. His machine has not yet been delivered. He does not wish to start the machine now in the hospital Total Time Total Time Spent Total Time Spent (In Minutes): <30 Discharge Plan Discharge Items Patient Disposition: Home - Self-Care Reason For Visit: CHEST PAIN Discharge Diagnosis: Chest pain Activity: Resume your previous activity Non-emergency contact: Primary Care Provider Call non-emergency contact if: you have any medication questions, your symptoms worsen, your pain is worsening and your pain is unusual for you Follow-up/Referrals: Lc Pack MD [Primary Care Provider] - Diet: Regular Addtl Attending Provider Instructions: You were admitted for chest pain. We have looked at your cardiac enzymes called troponins and an EKG, and you were evaluated by a patient care technician instructor while in the hospital who has determined that a stress test can be done outside of the hospital to further evaluate your episodes of chest pain. As your symptoms have improved and cardiology has no plans for interventions at this time, we feel it is safe for you to return home. Your chest pain could still be cardiac/heart related, but you were not found to have had a heart attack (also called an WA) this visit, so you should expect another stress test within the next few weeks. Your pain may also be related to musculoskeletal rib pain (hence why laying on your left side or swinging your arms causes issues) or can be related to reflux symptoms (which are typically described as burning and worse when people lay down). You should follow-up with your primary care physician within 1 week of discharge from the hospital. Medications: Your medication list has been reviewed and reconciled upon discharge to ensure accuracy and continuity of care. An updated list of all your medications is included with your hospital discharge paperwork. Please review this list closely, and make note of any changes. NO medication changes have been made this visit. Take your medications as instructed; do not skip a dose of your medicines. Make sure all of your doctors know every medicine you are taking (including hbzy-vwk-jqllxdq medicines, vitamins, and supplements). Call your primary care provider before taking any new medicines (including over- the-counter medicines, vitamins, and supplements), because some of these may interact with your current medications, or may make your symptoms worse. Tell your primary care provider if you cannot afford your medications. Activity: You can do normal everyday activities as your body allows. Take rest breaks if you feel tired. Do not overexert. Stop activity if you have pain, shortness of breath or feel dizzy. Follow-up appointments: Make an appointment with your primary care physician within one week of discharge. A copy of this summary will be sent to them. Every time you see your primary care physician, or any other doctor, bring your medication list, and a list of questions. CONTACT YOUR PRIMARY CARE PROVIDER if you experience any of the following: Shortness of breath or difficulty breathing Swelling of your feet, ankles, hands or abdomen Feeling tired with normal activity or experiencing dizziness or fainting Difficulty following your treatment plan, or difficulty taking medications CALL 911 OR GO TO THE EMERGENCY DEPARTMENT if you experience any of the following: Severe abdominal pain or nausea/vomiting Severe chest pain, or chest pain that radiates (moves) to your jaw or arm Sudden, severe shortness of breath or difficulty breathing Thank you for allowing us to participate in your care. Pending Studies at Discharge: No Stand-Alone Forms: [facility], Smoking Cessation Medications and DC Order Prescriptions: Continued (DME) lancets [OneTouch Delica Plus Lancet] 33 gauge [facility] [place] See Rx Instructions .Route Qty: 200 3RF Rx Instructions: Test blood sugar two times daily amlodipine [Norvasc] 10 mg tablet 10 mg PO DAILY Qty: 90 1RF atorvastatin 20 mg tablet 20 mg PO DAILY Qty: 90 1RF hydrochlorothiazide 25 mg tablet 25 mg PO DAILY Qty: 90 1RF valsartan 320 mg tablet 320 mg PO DAILY Qty: 90 1RF aspirin [Adult Low Dose Aspirin] 81 mg tablet,delayed release (DR/EC) 81 mg PO DAILY Qty: 90 1RF cholecalciferol (vitamin D3) 50 mcg (2,000 unit) capsule 50 mcg PO DAILY Qty: 90 1RF (DME) blood-glucose meter [OneTouch Verio Flex meter] [facility] [place] See Rx Instructions .Route Qty: 1 0RF Rx Instructions: Use to monitor blood sugars (DME) OneTouch Verio test strips Strip See Rx Instructions .Route Qty: 100 3RF Rx Instructions: Use to monitor blood glucose 2 times a day and as needed metformin 1,000 mg tablet 1,000 mg PO BID Qty: 180 3RF Rx Instructions: Take one tablet by mouth twice daily. Discharge Orders: Discharge Order (Routine); Ordered 03/16/24 Ordered By: Summer Manzo Admission Data Admit Date/Time: 05/10/23 01:55 Attending Provider: Lucas Ramírez Admit Provider: Gisell Kraft Primary Care Provider: Lc Pack Other Providers: Dickson Treviño; Gisell Kraft Other Interventions: Discharge Summary Assessment (RN) Last Done: 05/10/23 13:16 Supervising Physician Co-Signing Physician Notes I personally examined the patient and verified all hill points of history and exam, discussed case, and agree with decision making with Dr Manzo feeling better and would like to go home. Answered all questions the best my ability. Case discussed with cardiology. Echocardiogram reviewed. Labs noted. Vitals noted, in general he is awake and alert pleasant no distress. HEENT normocephalic atraumatic mucous membranes moist. Breathing unlabored no accessory muscle use good effort. Skin shows no rashes no pallor or icterus. Neuro without focal deficits. Chest painmost likely GI, less possibly musculoskeletal/rib related, does not at all sound consistent with angina. Very mild troponin nonspecific, likely baseline due to LVH. Safe/stable for home. Given presentation of "atypical symptoms and a high risk patient" agree with cardiology that a stress test is quite reasonable, but also quite safe to be done as an outpatientI have asked our nurse navigator to assist in setting this up. Resident Activity Tracking Resident Involvement: Resident Care Provided Care Provided: Adult Hospital Medicine
--- NOTE | 2023-05-10 13:30 | Electrocardiogram Report ---
Test Reason : Blood Pressure : / mmHG Vent. Rate : 062 BPM Atrial Rate : 062 BPM P-R Int : 272 ms QRS Dur : 120 ms QT Int : 428 ms P-R-T Axes : 027 -58 010 degrees QTc Int : 434 ms Sinus rhythm with 1st degree A-V block Left anterior fascicular block Minimal voltage criteria for LVH, may be normal variant Septal infarct (cited on or before 25-MAR-2022) Abnormal ECG When compared with ECG of 25-MAR-2022 08:06, Borderline criteria for Lateral infarct are no longer Present Nonspecific T wave abnormality now evident in Lateral leads Confirmed by Josue Anguiano ([id number]) on 05/10/2023 1:30:10 PM Referred By: REFERRED SELF Confirmed By:Josue Anguiano
--- NOTE | 2023-05-10 13:32 | Electrocardiogram Report ---
Test Reason : Blood Pressure : / mmHG Vent. Rate : 056 BPM Atrial Rate : 056 BPM P-R Int : 288 ms QRS Dur : 106 ms QT Int : 460 ms P-R-T Axes : 072 -61 000 degrees QTc Int : 443 ms Sinus bradycardia with 1st degree A-V block Left anterior fascicular block Minimal voltage criteria for LVH, may be normal variant Poor R wave progression, consider anterior PR vs. lead placement vs. LVH Abnormal ECG When compared with ECG of 09-MAY-2023 23:35, (unconfirmed) No significant change was found Confirmed by Josue Anguiano ([id number]) on 05/10/2023 1:32:27 PM Referred By: REFERRED SELF Confirmed By:Josue Anguiano
--- NOTE | 2023-05-10 14:46 | Billing Data ---
Date of Service May 10, 2023 Coding Level of Care Code 07424 IN/OBS DISCH 30 MIN/LESS
== END 2023-05-10 13:16 | disposition home or self-care (01) ==
LOC: EDINP 23:28 → ED 23:28 → SUATTDRO 05-10 01:55 → EDINP 05-10 03:30